=== PATIENT | male | born 1980 | race Caucasian/White ===

== ENCOUNTER 2018-11-02 12:34 | Emergency (ER) | payer OTHER, SELFPAY ==
[2018-11-02 12:34] VITALS: BP 131/92; PULSE 73; RESP 20; TEMP 36.2; BMI 22.4
--- NOTE | 2018-11-02 13:03 | ED.DEP ---
ED Disposition - Plan for ED Patient: Disposition: Home or Assisted Living Instructions: ED Laceration All Referrals: Nakul Lang MD [[facility]] -
[2018-11-02 13:12] VITALS: BP 124/72; PULSE 88; RESP 16; O2SAT 98
--- NOTE | 2018-11-02 13:19 | ED.DCSUM_ITS ---
- ER Visit Summary Date of Service: 11/02/18 Chief Complaint: Right second third and fourth finger lacerations History of Present Illness: The patient is a 38 M who was repairing a microwave when it slipped with his hand on the back of the microwave. He cut his right second third and fourth fingers. His tetanus is up-to-date. He was able to control the bleeding at home. Physical Examination: Right hand exam reveals 1.25 cm lacerations between the PIP and DIP joints on the palm side of the right second third and fourth fingers. Bleeding controlled at this time Test Results: None performed Emergency Department Course and Treatment: The patient had a laceration repair. Lidocaine was used to anesthetize the area. His tendon function is intact. He had a total of 10 simple sutures placed. He had 4 sutures in the second finger, 3 sutures in the third finger, just in the fourth finger. He will have these out in 7 to 10 days. He will be educated on local wound care Treatment Plan: [] Disposition: Discharge Impression: Right second third and fourth finger lacerations, 1.25 cm each Laceration repaired by ED physician This note was generated with [employer] dictation software. It may contain incorrect words, spelling, and punctuation that were not noted in review of the chart prior to signing
== END 2018-11-02 13:20 | disposition home or self-care (01) ==
PROVIDERS: Emergency Provider Emergency Medicine; Family Provider Family Medicine; PCP Family Medicine
DX: S61.210A Laceration without foreign body of right index finger without damage to nail, initial encounter (principal); S61.214A Laceration without foreign body of right ring finger without damage to nail, initial encounter; W26.8XXA Contact with other sharp object(s), not elsewhere classified, initial encounter; Y93.9 Activity, unspecified; Y92.89 Other specified places as the place of occurrence of the external cause; Y99.8 Other external cause status
CPT/HCPCS: 12001; 99283

== ENCOUNTER → 2019-09-11 10:07 | Outpatient (CLI) | payer OTHER, SELFPAY ==
[2019-09-11 12:36] LABS: Vitamin D,25 Hydroxy 14.4 ng/mL
[2019-09-11 12:46] LABS: Thyroid Stim Hormone (TSH) 1.08 uIU/mL (0.358-3.74)
[2019-09-14 16:07] LABS: Testosterone, Free 12.31 ng/dL (5.00-21.00)
[2019-09-16 13:24] LABS: Testosterone, % Free 2.76 % (1.50-4.20); Testosterone, Total 446 ng/dL (264-916)
== END ==
PROVIDERS: PCP Family Medicine; Referring Provider Family Medicine; Visit Provider Family Medicine
DX: R53.83 Other fatigue (principal); R68.82 Decreased libido
CPT/HCPCS: 36415; 82306; 84402; 84403; 84443

== ENCOUNTER → 2019-10-24 07:06 | Outpatient (CLI) | payer OTHER, SELFPAY ==
[2019-10-24 10:00] LABS: AST(SGOT) 20 U/L (15-37); Alanine Aminotransfer ALT/SGPT 27 U/L (16-61); Alkaline Phosphatase 74 U/L (45-117); Bilirubin, Direct 0.12 mg/dL (0.00-0.30); Globulin 3.8 g/dL (2.2-4.2); Protein, Total 7.8 g/dL (6.4-8.2)
[2019-10-24 10:04] LABS: Vitamin D,25 Hydroxy 56.7 ng/mL
== END ==
PROVIDERS: PCP Family Medicine; Referring Provider Family Medicine; Visit Provider Family Medicine
DX: B35.1 Tinea unguium (principal); E55.9 Vitamin D deficiency, unspecified
CPT/HCPCS: 36415; 80076; 82306

== ENCOUNTER 2023-12-25 11:00 | Outpatient (RCR) | payer OTHER, SELFPAY ==
--- NOTE | 2023-12-13 08:50 | HP.PTEVAL_ITS ---
Patient's Visit Information Visit Information Visit Information: AURELIO KELLER is a 43 year old M referred to Physical Therapy by Dr. Aurelio Lang MD with a diagnosis of Left Lateral Epicondylitis. Date of Evaluation: 12/13/23 Physical Therapist: Laverne Rojo DPT Visit Plan Frequency: 2x /Week Duration: 4 Weeks Plan: Phase 1: Manual Massage, US, Dry Needling, Triceps Stretching Phase 2: Moist Heat then progress to active stretching NOT painful to the elbow and scapular strength/stabilization Phase 3: Passive Stretching Exercises and scapular s/s Phase 4: Strengthening Exercises HEP: Phase I Lateral Epicondylitis Protocol: Manual Massage, Moist Heat, Splint for Sleep and Resistance Exercises Subjective Subjective: Left elbow pain since April- he is really big into running and lifting. One day he just felt it- he stopped lifting for about a month- he went and saw Dr. Lang. Jul 17 he had a cortisone injection. Was good for about 3 months and then it started acting up again. Its not as bad as it was but now its just its just constant and painful at night. Before holding a glass was difficult now its just painful. Pain is located on the lateral epicondyle- the pain does radiate down the arm- if he is shaking something up. No neck pain or shoulder pain. Describes the pain as achy. No N/T in the fingers. 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 No repetitive jobs. He goes not lift heavy weights- he tries to maintain- 4-5x a week- both upper and lower body- free weights. 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 Sleep: bothers him- hard to get comfortable-side sleeper and stomach sleeper. He wears a sleeve and it feels a little bit better. He ices sometimes. Eases: Tylenol ointment, Tylenol in the AM. Best: 1/10 Worst: 7-8/10 at night. During the day it hurts to have it straight and at night it hurts to have it bent. Daily runner: 3-5 miles- road miles. 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 Balance/Special Test Scores Quick DASH Score: 25.0000 Goals Goal 1:: Patient will be I with HEP and progression Goal Time Frame: 4-6 Weeks Goal 2:: Patient will demo equal operations director bilateral Goal Time Frame: 4-6 Weeks Goal 3:: Patient will have no pain with ADL's. Goal Time Frame: 4-6 Weeks Goal 4:: Patient will report 80% improvement Goal Time Frame: 4-6 Weeks Rehabilitation Potential Physical Therapy Diagnosis: Patient presents with hypomobility- he has decreased UE and scapular strength/stabilization, pain free ROM and muscular endurance leading to increased pain with ADL's and recreational activities Rehabilitation Potential: Good Anticipated Interventions Patient/Client Instruction: Educate patient on: Benefits of Fitness Program Therapeutic Exercise to Include: Strength training, Endurance training, Agility training, Body mechanics, Postural training, Flexibilty training, Neuromotor development, Passive ROM, Active ROM, Dynamic Lumbar Stabilization and Scapular Strength/Stabilization For the Purpose of:: To improve muscle performance and motor function Manual Therapy Techniques to Include: Passive ROM, Functional dry needling and Soft tissue mobilization TENS: Yes Cryotherapy (ice pack, ice massage): Yes Thermo therapy (hot pack): Yes Ultrasound (thermal/non thermal): Yes Text: Thank you for the opportunity to evaluate your patient. For Medicare and Medicare HMO plans, please review the plan of care and approve it. It will need to be FAXED BACK to us at [phone] for Medicare purposes. For Medicare only, by signing this I certify the plan of care. Please let me know if there are questions or concerns regarding this plan of care. Physician Signature: Date:
--- NOTE | 2024-02-14 08:27 | HP.PT.NRP ---
Patient Information Patient Information: AURELIO KELLER was seen in my office for initial evaluation on 12/13/23. The following Plan of Care was established for this patient: POC Established Initial Frequency: 2x /Week Initial Duration: 4 Weeks Anticipated Interventions Patient/Client Instruction: Educate patient on: Benefits of Fitness Program Therapeutic Exercise to Include: Strength training, Endurance training, Agility training, Body mechanics, Postural training, Flexibilty training, Neuromotor development, Passive ROM, Active ROM, Dynamic Lumbar Stabilization and Scapular Strength/Stabilization For the Purpose of:: To improve muscle performance and motor function Manual Therapy Techniques to Include: Passive ROM, Functional dry needling and Soft tissue mobilization TENS: Yes Cryotherapy (ice pack, ice massage): Yes Thermo therapy (hot pack): Yes Ultrasound (thermal/non thermal): Yes Last Seen Last Seen: This patient was last seen in our office . Pertinent comments regarding their Physical therapy will appear below: Patient to follow up with MD regarding further evaluation on elbow- is appropriate to be d/c from PT and return as needed At this point I will be discontinuing this patient from physical therapy. I would be happy to see this patient again in the future if found appropriate by the physician. Thank you! Laverne Rojo, JAY Balance/Gait/Functional tests Balance/Special Test Scores Quick DASH Score: 25.0000
== END 2023-12-25 19:00 | disposition home or self-care (01) ==
LOC: PT 11:00
PROVIDERS: PCP Family Medicine; Referring Provider Family Medicine; Visit Provider Family Medicine
DX: M77.12 Lateral epicondylitis, left elbow (principal)
CPT/HCPCS: 97035; 97110; 97162; 97530

== ENCOUNTER → 2024-01-17 | Outpatient (CLI) | payer OTHER, SELFPAY ==
--- NOTE | 2024-01-17 11:34 | RAD_ITS ---
STUDY: X-RAY - LEFT ELBOW REASON FOR EXAM: Male, 43 years old. Pain. TECHNIQUE: 3 view(s) of the elbow. COMPARISON: None. FINDINGS: Normal visualized humerus, radius and ulna. Normal radiocapitellar and ulnotrochlear articulations. The soft tissue structures are normal. RAD/Elbow min 3 Views IMPRESSION: Normal x-ray examination of the elbow. Electronically Signed: Cristian Ji MD at 12:19 EDT ,
== END | disposition home or self-care (01) ==
PROVIDERS: PCP Family Medicine; Referring Provider Family Medicine; Visit Provider Family Medicine
DX: M77.12 Lateral epicondylitis, left elbow (principal)
CPT/HCPCS: 73080